=== PATIENT | male | born 1985 | race Caucasian/White ===

== ENCOUNTER 2018-11-11 08:46 | Outpatient (CLI) | payer OTHER ==
--- NOTE | 2018-11-11 13:31 | MRI Report ---
Reason: LOW BACK PAIN Procedure Date: 11/11/2018 Accession Number: [id number] / [id number] Procedure: MRI - Lumbar Spine W/O CPT Code: FULL RESULT: EXAM: MRI LUMBAR SPINE WITHOUT CONTRAST EXAM DATE: 11/11/2018 09:16 AM. CLINICAL HISTORY: LOW BACK PAIN. COMPARISON: None. TECHNIQUE: Multiplanar, multisequence T1-weighted and fluid-sensitive sequences of the lumbar spine from T12 to S1 without contrast. Other: None. FINDINGS: Spinal Canal: The conus terminates at mid L1. The conus medullaris and cauda equina are unremarkable. Alignment: No scoliosis or spondylolisthesis. Bone Marrow: Five hyi-[id number]-[id number] lumbar vertebral bodies are assumed. Schmorl's nodes at T11, T12, L1, L2, L3 vertebral body endplates. No acute fracture or bone lesions. Disk Levels/Facets: L5-S1: Type II degenerative endplate changes. Mild disk space narrowing. Small right and left foraminal disk protrusions. Mild foraminal stenosis. L4-L5: Small disk bulge. Focal fissure at the left posterior lateral aspect of the disk annulus. Minimal right and mild left foraminal stenosis. L3-L4: Unremarkable. L2-L3: Unremarkable. L1-L2: Small posterior central disk protrusion. Minimal canal narrowing. No foraminal stenosis. T12-L1: Small posterior left paracentral disk protrusion. Minimal left sided canal narrowing. No foraminal stenosis. T11-T12: Small posterior right paracentral disk protrusion and tiny posterior left paracentral disk protrusion. Mild left-sided and right-sided canal stenosis. No foraminal stenosis. Musculature: Normal. No edema or fatty atrophy. Other: The partially visualized retroperitoneum is unremarkable. IMPRESSION: 1. Multilevel degenerative disk changes. 2. Mild foraminal stenosis at L5-S1. Mild left and minimal right foraminal stenosis at L4-L5. 3. Minimal canal narrowing at L1-L2 and T12-L1. Mild canal stenosis at T11-T12. Comment: The following findings are so common in adults without low back pain that while we report their presence, they must be interpreted with caution and in the context of the clinical situation. (Reference Alexanderk et al, Spine 2001) Prevalence of findings in patients without low back pain: Disk degeneration (any evidence): 92% Disk desiccation/T2 signal loss: 83% Disk height loss: 56% Disk bulge: 64% Disk protrusion: 32% Annular tear/high intensity zone: 38% RADIA
== END 2018-11-11 08:47 | disposition home or self-care (01) ==
LOC: DI 08:46
PROVIDERS: ATTEND Family Medicine
DX: M51.26 Other intervertebral disc displacement, lumbar region (principal); M51.24 Other intervertebral disc displacement, thoracic region; M51.27 Other intervertebral disc displacement, lumbosacral region; M51.37 Other intervertebral disc degeneration, lumbosacral region; M48.07 Spinal stenosis, lumbosacral region
CPT/HCPCS: 72148

== ENCOUNTER 2019-01-13 13:51 | Emergency (ER) | payer OTHER ==
--- NOTE | 2019-01-13 15:49 | ED Physician Documentation ---
History of Present Illness - Stated complaint Stated Complaint: LT LEG PAIN, "ABNORMAL D-DIMER TEST" - Chief complaint Chief Complaint: Ext Problem - History obtained from History obtained from: Patient - History of Present Illness Timing: How many weeks ago (1) Pain level max: 6 Pain level now: 5 - Additonal information Additional information: Patient with left lower extremity pain. Worse with palpation and movement. Better with rest. Saw the [facility] today and states he had an elevated d- dimer and was sent here for an ultrasound. No history of blood clots. No travel. No surgery. Review of Systems Constitutional: denies: Fever, Chills Cardiac: denies: Chest pain / pressure Respiratory: denies: Dyspnea, Cough Skin: denies: Rash Musculoskeletal: denies: Neck pain, Back pain Neurologic: denies: Headache PD PAST MEDICAL HISTORY - Past Medical History Past Medical History: No - Past Surgical History Past Surgical History: No - Present Medications Home Medications: Ambulatory Orders Medication Instructions Recorded Confirmed Ibuprofen [Motrin] 800 mg PO Q8H PRN #30 tablet 01/13/19 - Allergies Allergies/Adverse Reactions: Allergies Allergy/AdvReac Type Severity Reaction Status Date / Time chlorhexidine AdvReac Rash Verified 01/13/19 13:58 [From [facility]] - Living Situation Living Situation: reports: With family Living Arrangement: reports: At home PD ED PE NORMAL - Vitals Vital signs reviewed: Yes - General General: Alert and oriented X 3, No acute distress - HEENT HEENT: Moist mucous membranes - Neck Neck: Supple, no meningeal sign - Cardiac Cardiac: RRR - Respiratory Respiratory: No respiratory distress, Clear bilaterally - Derm Derm: Warm and dry - Extremities Extremities: No edema, No calf tenderness / cord, Other (No swelling) - Neuro Neuro: Alert and oriented X 3 Results - Vitals Vitals: Oxygen O2 Source Room air - Rads (name of study) Duplex ultrasound left lower extremity Radiology: Prelim report reviewed, EMP read contemporaneously, See rad report (No DVT. Nonocclusive thrombus in the lesser saphenous vein) PD MEDICAL DECISION MAKING - ED course Complexity details: reviewed results, re-evaluated patient, considered differential, d/w patient ED course: Patient with superficial thrombophlebitis. Will place on NSAIDs for home. Pt will follow-up with his doctor for further care. Would likely benefit from a repeat ultrasound to ensure that there is no extension into the deep venous system. Patient counseled regarding signs and symptoms for which I believe and urgent re-evaluation would be necessary. Patient with good understanding of and agreement to plan and is comfortable going home at this time This document was made in part using voice recognition software. While efforts are made to proofread this document, sound alike and grammatical errors may occur. Departure - Departure Disposition: Home, Self Care Clinical Impression: Superficial thrombophlebitis Qualifiers: Superficial thrombophlebitis-Involved body area: lower extremity Laterality: left Qualified Code(s): I80.02 - Phlebitis and thrombophlebitis of superficial vessels of left lower extremity Condition: Good Instructions: ED Phlebitis Superficial Follow-Up: FARHAN MILLER MD [Primary Care Provider] - Within 1 week Prescriptions: Ibuprofen [Motrin] 800 mg PO Q8H PRN #30 tablet PRN Reason: PAIN &/OR FEVER Comments: You should start on a full dose aspirin daily until this is resolved. In your lesser saphenous vein, you have a nonocclusive thrombus that is causing your pain. This should improve with anti-inflammatories and aspirin. Your doctor may want to repeat an ultrasound in 1 to 2 weeks to check to ensure that it is resolving normally. Return if you worsen. Discharge Date/Time: 01/13/19 16:50
[2019-01-13] MEDS ORDERED: IBUPROFEN 600 MG TABLET PO STA (16:39)
[2019-01-13] MEDS ORDERED: ASPIRIN CHEW 81 MG TABLET PO STA (16:39)
--- NOTE | 2019-01-13 17:21 | Ultrasound Report ---
Reason: L leg pain, elevated d-dimer Procedure Date: 01/13/2019 Accession Number: [id number] / [id number] Procedure: US - Duplex Ext Veins Left CPT Code: Final Report FULL RESULT: EXAM: LEFT LOWER EXTREMITY VENOUS ULTRASOUND EXAM DATE: 01/13/2019 04:20 PM. CLINICAL HISTORY: L leg pain, elevated d-dimer. COMPARISON: None. TECHNIQUE: Real-time sonographic vascular imaging was performed by the environmental solutions engineer through the lower extremity utilizing both color-flow and Doppler spectral analysis. Multiple utility sales representative static images were saved for review. FINDINGS: Common Femoral Vein (CFV): Normal. CFV-GSV Junction: Normal. Profunda Femoral Vein (PFV): Normal. Femoral Vein (FV) Prox: Normal. Femoral Vein (FV) Mid: Normal. Femoral Vein (FV) Dist: Normal. Popliteal Vein: Normal. Posterior Tibial Veins: Normal. Peroneal Veins: Normal. Other: Thrombus in the lesser saphenous vein. IMPRESSION: 1. No evidence for deep venous thrombosis. 2. Thrombus in the superficial lesser saphenous vein RADIA
[2019-01-13 17:39] VITALS: BP 156/92
== END 2019-01-13 16:50 | disposition home or self-care (01) ==
LOC: ED 13:51
DX: I80.02 Phlebitis and thrombophlebitis of superficial vessels of left lower extremity (principal)
CPT/HCPCS: 93971; 99283; 99284; A9270